=== PATIENT | female | born 1990 | race Caucasian/White ===

== ENCOUNTER → 2018-09-12 | Outpatient (CLI) | payer OTHER ==
[~2018-09-12] MED LIST: ANUS2.5C2 PR; COLA50CA3 PO; IBUP600T26 PO; MAPA500T17 PO; MILK10SU PO
[2018-09-12 15:25] LABS: BASO % 0.3 % (0.0-1.0); EOS # 0.1 10^3/uL (0.0-0.50); EOS % 1.5 % (0.0-3.0); HEMATOCRIT 36.6 % (36.0-47.0); HEMOGLOBIN 12.3 g/dl (12.0-15.5); LYMPH # 0.9 10^3/uL (1.5-6.5); LYMPH % 10.3 % (24.0-44.0); MEAN CORPUSCULAR HEMOGLOBIN 31.2 pg (27.0-33.0); MEAN CORPUSCULAR HGB CONC 33.6 g/dl (32.0-36.5); MEAN CORPUSCULAR VOLUME 92.9 fl (80.0-96.0); MONO # 0.5 10^3/uL (0.0-0.8); MONO % 5.2 % (0.0-5.0); NEUTROPHILS # 7.3 10^3/uL (1.8-7.7); NEUTROPHILS % 82.1 % (36.0-66.0); PLATELET COUNT, AUTOMATED 170 10^3/uL (150-450); RED BLOOD COUNT 3.94 10^6/uL (4.00-5.40); WHITE BLOOD COUNT 8.9 10^3/uL (4.0-10.0)
[2018-09-12 16:38] LABS: HIV 1&2 SCREEN CENTAUR NEGATIVE (NEGATIVE); RUBELLA IgG QUALITATIVE EQUIVOCAL (IMMUNE)
[2018-09-12 17:07] LABS: CHLAMYDIA DNA AMPLIFICATION NEGATIVE (NEGATIVE); GC DNA AMPLIFICATION NEGATIVE (NEGATIVE)
== END ==
LOC: M LAB 14:35
PROVIDERS: ATTEND Advanced Practice Midwife
DX: Z36.89 Encounter for other specified antenatal screening (principal); Z3A.00 Weeks of gestation of pregnancy not specified

== ENCOUNTER → 2018-10-06 | Outpatient (REF) | payer OTHER | LOC: M LAB REF 16:45 | PROVIDERS: ATTEND Obstetrics & Gynecology | DX: R30.0 Dysuria (principal) ==

== ENCOUNTER → 2018-11-09 | Outpatient (CLI) | payer OTHER ==
[2018-11-09 17:43] LABS: HEMOGLOBIN 12.6 g/dl (12.0-15.5); MEAN CORPUSCULAR HEMOGLOBIN 32.1 pg (27.0-33.0); MEAN CORPUSCULAR HGB CONC 33.2 g/dl (32.0-36.5); MEAN CORPUSCULAR VOLUME 96.7 fl (80.0-96.0); PLATELET COUNT, AUTOMATED 162 10^3/uL (150-450); RED BLOOD COUNT 3.93 10^6/uL (4.00-5.40)
== END ==
LOC: M SMT 13:07
PROVIDERS: ATTEND Obstetrics & Gynecology
DX: Z34.82 Encounter for supervision of other normal pregnancy, second trimester (principal); Z36.89 Encounter for other specified antenatal screening

== ENCOUNTER → 2019-01-17 | Outpatient (REF) | payer OTHER | LOC: M LAB REF 12:45 | PROVIDERS: ATTEND Advanced Practice Midwife | DX: Z36.85 Encounter for antenatal screening for Streptococcus B (principal) ==

== ENCOUNTER 2019-02-16 21:34 | Inpatient (IN) | payer OTHER ==
[~2019-02-16] VITALS: Ht 162.6 cm; Wt 79.1 kg
[2019-02-16 21:58] VITALS: BP 119/77
[2019-02-16] MEDS ORDERED: PRENTAB9 PO (22:06)
[2019-02-16] MEDS ORDERED: RANI1TAB38 PO (22:06)
[2019-02-16] MEDS ORDERED: LACTATED RINGER'S 1000 ML IV STA (22:30)
[2019-02-16 23:09] VITALS: BP 100/59
[2019-02-16 23:14] LABS: BASO % 0.3 % (0.0-1.0); EOS # 0.1 10^3/uL (0.0-0.5); HEMATOCRIT 36.6 % (36.0-47.0); HEMOGLOBIN 12.5 g/dl (12.0-15.5); LYMPH # 1.3 10^3/uL (1.5-5.0); MEAN CORPUSCULAR HEMOGLOBIN 32.4 pg (27.0-33.0); MEAN CORPUSCULAR HGB CONC 34.2 g/dl (32.0-36.5); MEAN CORPUSCULAR VOLUME 94.8 fl (80.0-96.0); MONO # 0.7 10^3/uL (0.0-0.8); MONO % 5.9 % (0.0-5.0); NEUTROPHILS # 9.7 10^3/uL (1.5-8.5); NEUTROPHILS % 81.3 % (36.0-66.0); PLATELET COUNT, AUTOMATED 175 10^3/uL (150-450); RED BLOOD COUNT 3.86 10^6/uL (4.00-5.40)
[2019-02-16] MEDS: LR 1,000 ML IV SCH (23:32)
--- NOTE | 2019-02-16 23:45 | HPE ---
DATE OF ADMISSION: 02/16/2019 The patient is a 29-year-old female, 2, para 1-0-0-1 with an estimated date of confinement (EDC) of 02/16/2019, estimated gestational age (EGA) 40 weeks gestation, who presents with complaints of contractions every 4-5 minutes. Upon evaluation, she was found to be in early labor. At this point, a decision was made for admission. Her records were reviewed, which were essentially unremarkable. LABS: Blood type is A+, rubella immune, hepatitis negative, HIV negative, GC and chlamydia negative, 1-hour sugar testing was within normal limits, GBS is negative. PAST MEDICAL HISTORY: Significant for exercise-induced asthma. PAST SURGICAL HISTORY: Denies. SOCIAL HISTORY: Denies any alcohol, drugs or cigarette smoking. REVIEW OF SYSTEMS: Unremarkable. MEDICATIONS: vitamin, Zantac 150 mg. ALLERGIES: Seasonal allergies. FAMILY HISTORY: Significant for diabetes. PHYSICAL EXAMINATION ON ADMISSION: HEENT: Grossly within normal limits. Abdomen: Soft, nontender, nondistended. Extremities: No clubbing, cyanosis or edema. Vaginal exam: 3 cm dilated, 80% effaced, fetus at -2 station, vertex position. Tracing reviewed, category one tracing. ASSESSMENT: Intrauterine at 40 weeks gestation with a history of 5-hour labor with her first delivery. PLAN: Admit to labor and delivery. Routine labs sent. Pain management discussed. The patient opts for no pain medications at this point. Will continue to monitor. Anticipate delivery.
[2019-02-17] VITALS (9 sets, daily range): BP systolic 98–120; BP diastolic 58–76
[2019-02-17] MEDS ORDERED: OXYTOCIN 30 UNITS IN 0.9% NaCl 500ML IV BAG (J2590) As Ordered ONE (00:38)
[2019-02-17] MEDS ORDERED: OXYTOCIN DRIP 30 UNITS in IV 1 EA IV SCH (00:47)
[2019-02-17] MEDS ORDERED: ACETAMINOPHEN TAB 650MG DOSE (2X325MG) PO PRN (01:00)
[2019-02-17] MEDS ORDERED: IBUPROFEN 600 MG TAB PO PRN (01:00)
[2019-02-17] MEDS ORDERED: DIBUCAINE 1% OINTMENT 30GM TOP PRN (01:00)
[2019-02-17] MEDS ORDERED: ACETAMINOPHEN 500 MG TAB PO PRN (01:00)
[2019-02-17] MEDS ORDERED: METHYLERGONOVINE MALEATE 0.2 MG TAB PO PRN (01:00)
[2019-02-17] MEDS ORDERED: DOCUSATE SODIUM 100 MG CAP PO PRN (01:00)
[2019-02-17] MEDS ORDERED: MEASLES,MUMPS,RUBELLA VACCINE INJ (MMR-II) (90707) SC SCH (01:00)
[2019-02-17] MEDS ORDERED: RHOGAM 300 MCG (1500 IU) INJ (J2790) IM SCH (01:00)
[2019-02-17 01:22] LABS: CORD GAS ABE V -2.5; CORD GAS O2 SAT V 27.8 %; CORD GAS PCO2 V 52.5 mmHg; CORD GAS PH V 7.295 UNITS; CORD GAS PO2 V 18.3 mmHg; CORD GAS SBC V 20.4 MEQ/L; CORD GAS TCO2 V 26.6 MEQ/L
[2019-02-17 01:23] LABS: CORD GAS ABE A -3.8; CORD GAS HCO3 A 26.6 MEQ/L; CORD GAS O2 SAT A < 15.0 %; CORD GAS PCO2 A 71.9 mmHg; CORD GAS PH A 7.186 UNITS; CORD GAS PO2 A 10.3 mmHg; CORD GAS TCO2 A 28.8 MEQ/L
[2019-02-17] MEDS: LR 1,000 ML IV SCH (07:00)
[2019-02-17] MEDS: PRENATAL VITAMINS CHEWABLE TABLET PO SCH (09:22)
--- NOTE | 2019-02-17 10:04 | DN ---
DATE OF DELIVERY: 02/17/2019 Miguel is a 29-year-old female 2, para 1-0-0-1 who was admitted at 40 weeks gestation in labor. She progressed to fully dilated after artificial rupture of membranes. She then pushed and delivered a live female in right occiput anterior position over an intact perineum with a nuchal cord times one. scores seven and nine. Birthweight 4 pounds 13 ounces. Placenta delivered spontaneously intact. Three-vessel cord. Perineum, vagina, and cervix inspected. No laceration noted. Estimated blood loss 250 mL. Both mother and baby in stable condition.
[2019-02-17] MEDS: IBUPROFEN 800 MG TAB PO PRN (10:36)
[2019-02-18 06:00] VITALS: BP 109/64
[2019-02-18] MEDS: PRENATAL VITAMINS CHEWABLE TABLET PO SCH (11:28)
[2019-02-18 18:27] VITALS: BP 125/68
[2019-02-19] MEDS: IBUPROFEN 800 MG TAB PO PRN (05:37)
[2019-02-19 06:16] VITALS: BP 108/64
[2019-02-19] MEDS: PRENATAL VITAMINS CHEWABLE TABLET PO SCH (07:52)
[2019-02-19] MEDS ORDERED: IBUP-1022 PO (10:06)
== END 2019-02-19 14:30 | disposition home or self-care (01) | DRG 560 ==
LOC: M LDO 21:34 → M LDI 22:29 → M OBS 02-17 02:50
PROVIDERS: ADMIT Obstetrics & Gynecology; ATTEND Obstetrics & Gynecology
PROC: 10E0XZZ Delivery of Products of Conception, External Approach (ICD-10-PCS; principal; 2019-02-17)
PROC: 10907ZC Drainage of Amniotic Fluid, Therapeutic from Products of Conception, Via Natural or Artificial Opening (ICD-10-PCS; 2019-02-17)
DX: O48.0 Post-term pregnancy (principal); Z37.0 Single live birth; Z3A.40 40 weeks gestation of pregnancy; O69.81X0 Labor and delivery complicated by cord around neck, without compression, not applicable or unspecified

== ENCOUNTER → 2019-05-26 | Outpatient (REF) | payer OTHER ==
[~2019-05-26] MED LIST changes: +IBUP-1022 PO; +PRENTAB9 PO; +RANI1TAB38 PO
== END ==
LOC: M SFHCWAGY 18:23
PROVIDERS: ATTEND Advanced Practice Midwife
DX: Z12.4 Encounter for screening for malignant neoplasm of cervix (principal)

== ENCOUNTER 2019-07-11 11:26 | Day surgery (SDC) | payer OTHER, SELFPAY ==
[~2019-07-11] VITALS: Ht 162.6 cm; Wt 65.8 kg
[~2019-07-11 11:26] MED LIST changes: +KS I200C PO; +LR 1,000 ML IV ONE; +NUVAMIS2 VA; +VENTAER INH
[2019-07-11 11:59] LABS: HEMATOCRIT 42.7 % (36.0-47.0); HEMOGLOBIN 13.7 g/dl (12.0-15.5); MEAN CORPUSCULAR HEMOGLOBIN 29.7 pg (27.0-33.0); MEAN CORPUSCULAR HGB CONC 32.1 g/dl (32.0-36.5); MEAN CORPUSCULAR VOLUME 92.6 fl (80.0-96.0); PLATELET COUNT, AUTOMATED 247 10^3/uL (150-450); RED BLOOD COUNT 4.61 10^6/uL (4.00-5.40); WHITE BLOOD COUNT 5.5 10^3/uL (4.0-10.0)
[2019-07-11] MEDS ORDERED: propofoL 200 MG/20 ML VIAL As Ordered ONE ×2 (14:01→14:31)
[2019-07-11] MEDS ORDERED: LIDOCAINE 2% INJ 100 MG/5 ML SDV (FOR ANES.) As Ordered ONE (14:01)
[2019-07-11] MEDS ORDERED: ROCURONIUM BROMIDE 50 MG/5 ML VIAL As Ordered ONE (14:01)
[2019-07-11] MEDS ORDERED: KETOROLAC 60 MG/2 ML VIAL (J1885) As Ordered ONE (14:02)
[2019-07-11] MEDS ORDERED: ONDANSETRON 4MG/2ML VIAL (J2405) As Ordered ONE (14:02)
[2019-07-11] MEDS ORDERED: dexameTHASONE 4 MG/ML 1ML VIAL (J1100) As Ordered ONE (14:02)
[2019-07-11] MEDS ORDERED: MIDAZOLAM INJ 2 MG/2 ML VIAL (J2250) As Ordered ONE (14:29)
[2019-07-11] MEDS ORDERED: fentaNYL 250 MCG/5 ML INJECTION (J3010) As Ordered ONE (14:30)
[2019-07-11] MEDS ORDERED: BUPIVACAINE HCL 0.25% 30 ML VIAL As Ordered ONE (15:05)
[2019-07-11] MEDS ORDERED: SUGAMMADEX SODIUM 500 MG/5 ML VIAL (BRIDION) As Ordered ONE (16:17)
[2019-07-11] MEDS ORDERED: PHENYLephrine HCL 500 MCG/5 ML (100MCG/ML) SYRINGE (J2370) As Ordered ONE (16:18)
[2019-07-11] MEDS ORDERED: ePHEDrine SULFATE 25 MG/5 ML(5MG/ML) SYRINGE As Ordered ONE (16:18)
[2019-07-11] MEDS ORDERED: ACETAMINOPHEN 1000MG 100ML IV BTL (OFIRMEV) (J0131 PER 10MG) As Ordered ONE (16:19)
[2019-07-11] MEDS ORDERED: ALBUTEROL 6.7GM INHALER **FOR ANES. CART/OMNICELL ONLY As Ordered ONE (16:30)
[2019-07-11] MEDS ORDERED: OXYC1TAB23 PO (16:52)
[2019-07-11] MEDS ORDERED: IBUP-1022 PO (16:53)
[2019-07-11] MEDS ORDERED: ONDANSETRON 4MG/2ML VIAL (J2405) IV PRN (17:15)
[2019-07-11] MEDS ORDERED: PERCOCET 5MG/325MG TAB PO PRN ×2 (17:15→17:45)
[2019-07-11] MEDS ORDERED: LR 1,000 ML IV SCH ×2 (17:15→17:45)
[2019-07-11] MEDS ORDERED: fentaNYL 100 MCG/2 ML INJECTION (J3010) IV PRN (17:15)
[2019-07-11 18:35] VITALS: BP 127/72
--- NOTE | 2019-07-12 11:20 | RO ---
DATE OF PROCEDURE: 07/11/2019 PREOPERATIVE DIAGNOSIS: Undesired fertility. POSTOPERATIVE DIAGNOSIS: Undesired fertility. PROCEDURE: Laparoscopic bilateral salpingectomy. SURGEON: Dr. Miguel Harris [employer]IN[employer]ENT T[employer] COLLECTOR: ANESTHESIA: General endotracheal. ESTIMATED BLOOD LOSS: 10 mL. URINE OUTPUT: 200 mL. FINDINGS: Normal pelvis including uterus, fallopian tubes and ovaries. Normal upper abdomen. OPERATIVE SUMMARY: Patient taken to the operating room where general endotracheal anesthesia was induced. She was prepped and draped in sterile fashion in the dorsal lithotomy position. A Ramirez catheter was placed. A sponge stick was placed in the vagina to use as a manipulator. A periumbilical incision was made with the scalpel. A Veress needle was placed through this incision while tenting up on the skin of the abdomen. Intra-abdominal location of the Veress needle was assessed by the use of a saline filled syringe. A pneumoperitoneum was created. The Veress needle was removed. A 5 mm trocar using [employer] was inserted through this incision. 5 and 8 mm suprapubic ports respectively were placed under direct visualization. The patient was placed in Trendelenburg position. Laparoscopic grasper used to elevate the fallopian tubes. A LigaSure device was used to coagulate and incise broad ligament attachments to the tubes. Both tubes were incised near their origin. Both tubes were removed through the suprapubic port. The pneumoperitoneum was released. All instruments were removed. Sponge, instrument and needle counts were correct. The skin was closed with #4-0 Monocryl subcuticular sutures. The patient was extubated and went to the recovery room.
== END 2019-07-11 18:35 | disposition home or self-care (01) ==
LOC: M SDC 11:26
PROVIDERS: ATTEND Specialist
DX: Z30.2 Encounter for sterilization (principal); J45.909 Unspecified asthma, uncomplicated; Z91.048 Other nonmedicinal substance allergy status
CPT/HCPCS: 36415; 58661; 81025; 85027; 88302; J0131; J1100; J1885; J2250; J2370; J2405; J3010